=== PATIENT | female | born 1950 | race African-American/Black ===

== ENCOUNTER 2024-09-27 21:45 | Emergency (ER) | payer SELFPAY ==
[~2024-09-27] VITALS: Ht 165.1 cm; Wt 67.0 kg
[2024-09-27 21:45] VITALS: BP 0/0; PULSE 0; RESP 0; O2SAT 0
== END 2024-09-28 01:14 ==
LOC: ER 21:45 → EDBD 21:45 → ER 09-28 01:14
DX: I46.9 Cardiac arrest, cause unspecified (principal)
CPT/HCPCS: 31500; 99285; Z7610